=== PATIENT | male | born 1960 | race Caucasian/White ===

== ENCOUNTER → 2021-06-12 | Outpatient (CLI) | payer MEDICARE | LOC: RAD 09:30 | DX: R13.10 Dysphagia, unspecified (principal); K74.60 Unspecified cirrhosis of liver; E11.9 Type 2 diabetes mellitus without complications; I10 Essential (primary) hypertension; E78.2 Mixed hyperlipidemia; M54.50 Low back pain, unspecified | CPT/HCPCS: 74230; 92611-GN ==

== ENCOUNTER → 2021-06-27 | Outpatient (CLI) | payer MEDICARE | LOC: CT 06-19 13:00 | DX: R93.2 Abnormal findings on diagnostic imaging of liver and biliary tract (principal); R16.0 Hepatomegaly, not elsewhere classified | CPT/HCPCS: 74170; Q9967 ==

== ENCOUNTER → 2021-07-11 | Day surgery (SDC) | payer MEDICARE ==
[~2021-07-11] MED LIST: ATORVASTATIN CA40 MG PO; CLARITIN10 MG PO; FUROSEMIDE20 MG PO; GABAPENTIN300 MG PO; GLIPIZIDE5 MG PO; LISINOPRIL2.5 MG PO; LOW DOSE ASPIRI81 MG PO; METFORMIN HCL1000 MG PO; PROPRANOLOL HCL10 MG PO; ROXICODONE5 MG PO; SPIRONOLACTONE50 MG PO; VITAMIN D21250 MCG PO
[2021-07-11 13:00] LABS: BUN/CREATININE RATIO 19 (0-10)
== END | disposition home or self-care (01) ==
LOC: OR 08:21
PROVIDERS: Internal Medicine Gastroenterology
DX: K31.9 Disease of stomach and duodenum, unspecified (principal); K21.00 Gastro-esophageal reflux disease with esophagitis, without bleeding; K29.71 Gastritis, unspecified, with bleeding; K70.31 Alcoholic cirrhosis of liver with ascites; R16.0 Hepatomegaly, not elsewhere classified; I10 Essential (primary) hypertension; E11.9 Type 2 diabetes mellitus without complications; E78.5 Hyperlipidemia, unspecified; K21.9 Gastro-esophageal reflux disease without esophagitis; Z79.84 Long term (current) use of oral hypoglycemic drugs; C22.1 Intrahepatic bile duct carcinoma; Z72.0 Tobacco use; Z20.822 Contact with and (suspected) exposure to COVID-19
CPT/HCPCS: 36415; 80048; J2001; J2704; J7040

== ENCOUNTER → 2021-08-09 | Outpatient (CLI) | payer MEDICARE | LOC: KOH-I 09:40 | DX: F17.210 Nicotine dependence, cigarettes, uncomplicated (principal) | CPT/HCPCS: 71271 ==